=== PATIENT | female | born 1965 | race Caucasian/White ===

== ENCOUNTER 2021-01-21 10:26 | Emergency (ER) | payer OTHER ==
[~2021-01-21] VITALS: Ht 165.1 cm; Wt 107.5 kg
[~2021-01-21 10:26] MED LIST: LEVO500T2 PO; TRAM50TA4 PO
[2021-01-21] MEDS ORDERED: DOXY-336 PO (12:02)
[2021-01-21] MEDS ORDERED: ACET1TAB25 PO (12:02)
[2021-01-21 13:02] VITALS: BP 123/74
== END 2021-01-21 13:02 | disposition home or self-care (01) ==
LOC: EDH 10:26
DX: C44.92 Squamous cell carcinoma of skin, unspecified (principal)